=== PATIENT | female | born 1960 | race Caucasian/White ===

== ENCOUNTER → 2024-06-16 | Outpatient (CLI) | payer BC ==
[2024-06-16 15:16] LABS: Basophils # (A) 0.04 X 10*3/uL (0.00-0.10); Basophils % (A) 0.4 %; Eosinophils # (A) 0.09 X 10*3/uL (0.04-0.35); HCT 45.4 % (37.2-46.3); HGB 14.6 g/dL (12.0-15.0); Lymphocytes # (A) 2.41 X 10*3/uL (0.90-5.00); Lymphocytes % (A) 25.7 %; MCH 28.6 pg (27.0-32.0); MCHC 32.2 g/dL (32.0-37.0); MCV 88.8 FL (80.0-97.0); Mean Platelet Volume 11.4 FL (9.5-12.2); Monocytes # (A) 0.48 X 10*3/uL (0.20-1.00); Monocytes % (A) 5.1 %; NRBC Per 100 WBC 0 X 10*3/uL (0.00-0.01); Neutrophils # (A) 6.31 X 10*3/uL (1.80-7.70); Neutrophils % (A) 67.5 %; Platelet Count 256 X 10*3/uL (140-440); RBC 5.11 X 10*6/uL (4.10-5.20); RDW 11.9 % (11.5-14.5); WBC 9.36 X 10*3/uL (4.50-10.00)
[2024-06-16 15:32] LABS: ALT 17 U/L (8-44); AST 24 U/L (13-35); Albumin 4.7 g/dL (3.8-4.9); Albumin/Globulin Ratio 1.96 Ratio (1.60-3.17); Alkaline Phosphatase 62 U/L (41-126); Blood Urea Nitrogen 12.8 mg/dL (9.0-27.0); Calcium 9.9 mg/dL (8.7-10.3); Carbon Dioxide 22.7 mmol/L (21.6-31.8); Chloride 103 mmol/L (96-109); Chol/HDL Ratio 3.08 Ratio; Globulin 2.4 g/dL (1.6-3.3); Glucose 121 mg/dL (70-110); LDL Cholesterol,Calculated 95.1 mg/dL (0.0-131.0); Potassium 4.4 mmol/L (3.5-5.5); Sodium 140 mmol/L (135-145); T4, Free (Free Thyroxine) 1.64 ng/dL (0.80-1.80); Total Bilirubin 0.5 mg/dL (0.3-1.2); Total Protein 7.1 g/dL (6.2-8.2)
== END | disposition home or self-care (01) ==
LOC: LABWHC1 09:21
PROVIDERS: ATTEND Internal Medicine
DX: Z00.00 Encounter for general adult medical examination without abnormal findings (principal); Z11.59 Encounter for screening for other viral diseases; R73.9 Hyperglycemia, unspecified
CPT/HCPCS: 36415; 80053; 80061; 83036; 84439; 84443; 85025; 87522

== ENCOUNTER → 2024-06-23 | Outpatient (CLI) | payer BC ==
--- NOTE | 2024-06-23 14:19 | CTL ---
EXAMINATION TYPE: CT Low Dose Lung DATE OF EXAM: 06/23/2024 11:32 AM COMPARISON: None. CLINICAL INDICATION: Female, 63 years old with history of Z12.2 SCREENING LUNG CA F17.210 CURRENT SMO KER, smoker, History of tobacco use. 54 pack-year history TECHNIQUE: Low dose computed tomography scan was performed through the chest at 1 mm thick sections a nd reconstructed images in multiple planes at 1 mm and [address] DLP: 71 mGycm, CT CTDI: 1.95 mGy, Automated exposure control for dose reduction was used. CT DIAGNOSTIC QUALITY: Satisfactory FINDINGS: The heart size without pericardial effusion. No significant coronary calcification. Aorta normal caliber with conventional branching anatomy. No thoracic lymphadenopathy by CT size criteria. Mild diffuse bronchial wall thickening. Minimal biapical pleural parenchymal scarring. Mild emphysema tous change. No consolidation or pleural effusion. No suspicious pulmonary nodule. The visualized upper abdomen shows cholecystectomy clips. Bones: There is facet arthropathy lower thoracic and upper lumbar spine. Mild to moderate degenerativ e disc disease here as well. IMPRESSION: 1. LungRADS 1, negative. No suspicious pulmonary nodules. 2. COPD with mild emphysema. Bronchial wall thickening suggests either a prominent component of chron ic bronchitis or superimposed acute bronchitis. Recommend smoking cessation. CT LUNG RAD AND CT CHEST RECOMMENDATION: Lung-Rad 1 Negative: Continue annual screening with LDCT in 12 months. S Modifier (other clinically significant findings): None [facility], Workstation: [email or web address], 06/23/2024 2:17 PM
== END | disposition home or self-care (01) ==
LOC: RADCTMAIN 11:06
PROVIDERS: ATTEND Internal Medicine
DX: Z12.2 Encounter for screening for malignant neoplasm of respiratory organs (principal); F17.210 Nicotine dependence, cigarettes, uncomplicated; J44.9 Chronic obstructive pulmonary disease, unspecified; J43.9 Emphysema, unspecified
CPT/HCPCS: 71271